=== PATIENT | male | born 1970 | race Caucasian/White ===

== ENCOUNTER 2017-10-09 09:00 | Day surgery (SDC) | payer OTHER ==
[~2017-10-09 09:00] MED LIST: NS 1,000 ML IV
[2017-10-09] MEDS ORDERED: MIDAZOLAM INJ 2 MG/2 ML VIAL (J2250) As Ordered (09:43)
[2017-10-09] MEDS ORDERED: PROPOFOL 200 MG/20 ML VIAL As Ordered (09:46)
[2017-10-09] MEDS ORDERED: LIDOCAINE 2% INJ 100 MG/5 ML SDV (FOR ANES.) As Ordered (09:46)
== END 2017-10-09 10:55 | disposition home or self-care (01) ==
LOC: M OPP 09:00
DX: K57.32 Diverticulitis of large intestine without perforation or abscess without bleeding (principal); D12.0 Benign neoplasm of cecum; D12.5 Benign neoplasm of sigmoid colon; K64.0 First degree hemorrhoids; K57.30 Diverticulosis of large intestine without perforation or abscess without bleeding; M19.90 Unspecified osteoarthritis, unspecified site; M54.9 Dorsalgia, unspecified; R06.83 Snoring; R09.81 Nasal congestion; F17.290 Nicotine dependence, other tobacco product, uncomplicated; Z80.3 Family history of malignant neoplasm of breast
CPT/HCPCS: 45385

== ENCOUNTER → 2019-09-18 | Outpatient (REF) | payer BC, OTHER ==
[~2019-09-18] MED LIST changes: -NS 1,000 ML IV; +PROBCAP4 PO
[2019-09-18 18:29] LABS: APPEARANCE, URINE CLEAR (CLEAR); BACTERIA, URINE AUTO NEGATIVE (NEGATIVE); BILIRUBIN, URINE AUTO NEGATIVE (NEGATIVE); BLOOD, URINE BLOOD NEGATIVE (NEGATIVE); COLOR, URINE YELLOW (YELLOW); GLUCOSE, URINE (UA) AUTO 3+ mg/dL (NEGATIVE); KETONE, URINE AUTO TRACE mg/dL (NEGATIVE); LEUKOCYTE ESTERASE, URINE AUTO NEGATIVE (NEGATIVE); MUCUS, URINE SMALL (NEGATIVE); NITRITE, URINE AUTO NEGATIVE (NEGATIVE); PROTEIN, URINE AUTO NEGATIVE (NEGATIVE); RBC, URINE AUTO 0 /HPF (0-3); SPECIFIC GRAVITY URINE AUTO 1.024 (1.002-1.035); SQUAMOUS EPITHELIAL CELL UR AU 0 /HPF (0-6); UROBILINOGEN, URINE AUTO 0.2 mg/dL (0.0-2.0); WBC, URINE AUTO 2 /HPF (0-3)
== END ==
LOC: M SMT 17:35
PROVIDERS: ATTEND Nurse Practitioner Family
DX: R31.0 Gross hematuria (principal)

== ENCOUNTER → 2019-09-25 | Outpatient (CLI) | payer BC, OTHER ==
[~2019-09-25] MED LIST changes: +ISOVUE-370 76% 100ML VIAL (Q9967) As Ordered ONE
--- NOTE | 2019-09-25 16:35 | REP ---
Clinical: Gross hematuria. Technique: Axial precontrast, contrast enhanced, and delayed images of the abdomen and pelvis using 100 ml Isovue 370 intravenous contrast material with coronal and sagittal re-formations. Comparison: None. Findings: Evaluation of the urinary tract system demonstrates 2 mm nonobstructing left renal calculus. The kidneys, bilateral ureters, and bladder are otherwise normal. Hepatomegaly and fatty infiltration to the liver. Spleen, pancreas, and bilateral adrenal glands are normal. Evidence of prior cholecystectomy. The enteric system is without obstruction or acute inflammatory process. Normal appendix identified in the right lower quadrant. Scattered colonic diverticula noted without acute diverticulitis. Pelvis demonstrates normal bladder and age-appropriate prostate/seminal vesicles. No ascites. No free air. No adenopathy. Abdominal aorta without aneurysm. Musculoskeletal structures are intact. Lung bases are clear. Impression: 1. 2 mm nonobstructing left renal calculus. 2. Hepatomegaly and hepatic steatosis. 3. Scattered colonic diverticula without acute diverticulitis Electronically Signed by Ramin Pennington MD 09/25/2019 04:25 P
== END ==
LOC: M RAD 15:16
PROVIDERS: ATTEND Nurse Practitioner Family
DX: R31.0 Gross hematuria (principal); N20.0 Calculus of kidney; K57.90 Diverticulosis of intestine, part unspecified, without perforation or abscess without bleeding
CPT/HCPCS: 74178; Q9967

== ENCOUNTER → 2019-10-23 | Outpatient (REF) | payer BC, OTHER ==
[~2019-10-23] MED LIST changes: -ISOVUE-370 76% 100ML VIAL (Q9967) As Ordered ONE
[2019-10-23 17:56] LABS: APPEARANCE, URINE CLEAR (CLEAR); BACTERIA, URINE AUTO NEGATIVE (NEGATIVE); BILIRUBIN, URINE AUTO NEGATIVE (NEGATIVE); BLOOD, URINE BLOOD NEGATIVE (NEGATIVE); CALCIUM OXALATE CRYSTALS SMALL; COLOR, URINE YELLOW (YELLOW); GLUCOSE, URINE (UA) AUTO 1+ mg/dL (NEGATIVE); KETONE, URINE AUTO NEGATIVE (NEGATIVE); LEUKOCYTE ESTERASE, URINE AUTO NEGATIVE (NEGATIVE); MUCUS, URINE SMALL (NEGATIVE); NITRITE, URINE AUTO NEGATIVE (NEGATIVE); PROTEIN, URINE AUTO NEGATIVE (NEGATIVE); RBC, URINE AUTO 0 /HPF (0-3); SQUAMOUS EPITHELIAL CELL UR AU 0 /HPF (0-6); UROBILINOGEN, URINE AUTO 0.2 mg/dL (0.0-2.0); WBC, URINE AUTO 1 /HPF (0-3)
== END ==
LOC: M SMT 17:05
PROVIDERS: ATTEND Urology
DX: R31.0 Gross hematuria (principal)

== ENCOUNTER 2020-11-30 15:13 | Emergency (ER) | payer OTHER, BC ==
[~2020-11-30] VITALS: Ht 182.9 cm; Wt 166.8 kg
[2020-11-30] MEDS ORDERED: AMLO1TAB24 (15:30)
[2020-11-30] MEDS ORDERED: METF500T13 (15:30)
[2020-11-30] MEDS ORDERED: CYCL-707 (15:30)
[2020-11-30] MEDS ORDERED: ATOR1TAB19 (15:30)
[2020-11-30] MEDS ORDERED: LISI20TA33 (15:30)
--- NOTE | 2020-11-30 16:21 | REP ---
INDICATION: bilat heel, 1st MTP pain, swelling, nki COMPARISON: None. TECHNIQUE: AP, lateral, bilateral oblique views right and left foot. FINDINGS: Right foot demonstrates diffuse soft tissue swelling. Osseous structures appear intact and without acute fracture or dislocation. Joint spaces are age-appropriate and without overt degenerative changes. Left foot demonstrates diffuse soft tissue swelling. Osseous structures appear intact and without acute fracture or dislocation. Joint spaces are age-appropriate and without overt degenerative changes. IMPRESSION: Bilateral soft tissue swelling. No acute fracture or dislocation. <Electronically signed by Ramin Pennington > 11/30/20 [id number]
[2020-11-30 16:31] LABS: BASO % 0.3 % (0.0-1.0); EOS # 0.2 10^3/uL (0.0-0.5); EOS % 1.2 % (0.0-3.0); HEMATOCRIT 45.4 % (42.0-52.0); LYMPH # 2.3 10^3/uL (1.5-5.0); LYMPH % 17.6 % (24.0-44.0); MEAN CORPUSCULAR HEMOGLOBIN 29.8 pg (27.0-33.0); MEAN CORPUSCULAR VOLUME 90.3 fl (80.0-96.0); MONO % 7.6 % (2.0-8.0); NEUTROPHILS # 9.5 10^3/uL (1.5-8.5); NEUTROPHILS % 72.8 % (36.0-66.0); PLATELET COUNT, AUTOMATED 311 10^3/uL (150-450); RED BLOOD COUNT 5.03 10^6/uL (4.30-6.10)
[2020-11-30 16:41] LABS: INR 1.01; PROTHROMBIN TIME 13.5 SECONDS (12.5-14.3)
[2020-11-30 16:42] LABS: PARTIAL THROMBOPLASTIN TIME 34.1 SECONDS (24.2-38.5)
[2020-11-30 17:02] LABS: ALBUMIN 4.4 GM/DL (3.2-5.2); ALT/SGPT 34 U/L (12-78); BILIRUBIN,DIRECT 0.1 MG/DL (0.0-0.2); BILIRUBIN,TOTAL 0.6 MG/DL (0.2-1.0); BLOOD UREA NITROGEN 11 MG/DL (7-18); CALCIUM LEVEL 9.4 MG/DL (8.5-10.1); CARBON DIOXIDE LEVEL 30 MEQ/L (21-32); CHLORIDE LEVEL 102 MEQ/L (98-107); CK-MB VALUE MASS < 1.0 NG/ML (<3.6); CPK CREATINE PHOSPHOKINASE 41 U/L (39-308); CREATININE FOR GFR 1.01 MG/DL (0.70-1.30); GLOMERULAR FILTRATION RATE > 60.0 (>56); GLUCOSE, FASTING 105 MG/DL (70-100); MAGNESIUM LEVEL 2.1 MG/DL (1.8-2.4); MB/CK RELATIVE INDEX 2.44 (< OR =4); NT-PRO BNP 9 PG/ML (<125); POTASSIUM SERUM 4.1 MEQ/L (3.5-5.1); SODIUM LEVEL 138 MEQ/L (136-145); TOTAL PROTEIN 7.5 GM/DL (6.4-8.2); TROPONIN I < 0.02 NG/ML (< 0.10)
[2020-11-30 17:56] LABS: ERYTHROCYTE SEDIMENTATION RATE 36 mm/hr (0-20)
[2020-11-30] MEDS ORDERED: KETOROLAC 60MG 2ML VIAL IM ONE (18:15)
--- NOTE | 2020-11-30 18:37 | REPVR ---
PROCEDURE INFORMATION: Exam: US Duplex Lower Extremity Veins, Bilateral Exam date and time: 11/30/2020 5:59 PM Age: 50 years old Clinical indication: Pain; Leg, lower and foot; Bilateral; Additional info: Calf pain, swelling shannon lower legs, bed bound 1 week TECHNIQUE: Imaging protocol: Real-time duplex ultrasound of the extremities with 2-D igron scale, color Doppler flow and spectral waveform analysis with image documentation. Complete exam focused on the bilateral lower extremity veins. COMPARISON: No relevant prior studies available. FINDINGS: Right deep veins: Unremarkable. The common femoral, femoral and popliteal veins are patent without thrombus. Normal Doppler waveforms. Normal compressibility and/or augmentation response. Right superficial veins: Saphenofemoral junction is patent without thrombus. Left deep veins: Unremarkable. The common femoral, femoral and popliteal veins are patent without thrombus. Normal Doppler waveforms. Normal compressibility and/or augmentation response. Left superficial veins: Saphenofemoral junction is patent without thrombus. Soft tissues: Unremarkable. IMPRESSION: No evidence of deep vein thrombosis in the lower extremity vessels bilaterally. Electronically signed by: Lucas Lord On 11/30/2020 18:38:01 PM
[2020-11-30] MEDS ORDERED: KETO10TAB PO (18:44)
[2020-11-30] MEDS ORDERED: ROLLMIS8 XX (18:51)
[2020-11-30 19:01] VITALS: BP 137/83
== END 2020-11-30 19:02 | disposition home or self-care (01) ==
LOC: M ED 15:13
DX: M79.673 Pain in unspecified foot (principal); R22.43 Localized swelling, mass and lump, lower limb, bilateral; M65.879 Other synovitis and tenosynovitis, unspecified ankle and foot; E11.9 Type 2 diabetes mellitus without complications; I10 Essential (primary) hypertension; G47.33 Obstructive sleep apnea (adult) (pediatric); E78.5 Hyperlipidemia, unspecified; M10.9 Gout, unspecified
CPT/HCPCS: 36415; 73630; 80048; 80076; 82550; 82553; 83735; 83880; 84484; 85025; 85610; 85652; 85730; 86140; 93970; 96372; 99284; J1885

== ENCOUNTER 2021-06-17 17:01 | Emergency (ER) | payer BC, OTHER ==
[~2021-06-17] VITALS: Ht 182.9 cm; Wt 165.4 kg
[~2021-06-17 17:01] MED LIST changes: +AMLO1TAB24; +ATOR1TAB19; +CYCL-707; +KETO10TAB PO; +LISI20TA33 PO; +METF500T13 PO; +ROLLMIS8 XX
[2021-06-17] MEDS ORDERED: NAPROXEN 250 MG TAB PO ONE (18:30)
[2021-06-17] MEDS ORDERED: TIZA2CAP PO (18:33)
[2021-06-17] MEDS ORDERED: NAPR-837 PO (18:33)
[2021-06-17 19:05] VITALS: BP 116/62
== END 2021-06-17 19:09 | disposition home or self-care (01) ==
LOC: M ED 17:01
DX: S29.012A Strain of muscle and tendon of back wall of thorax, initial encounter (principal); X58.XXXA Exposure to other specified factors, initial encounter; Y92.89 Other specified places as the place of occurrence of the external cause; Y93.89 Activity, other specified; Y99.8 Other external cause status; M62.830 Muscle spasm of back; M10.9 Gout, unspecified; G47.33 Obstructive sleep apnea (adult) (pediatric); I10 Essential (primary) hypertension; E11.9 Type 2 diabetes mellitus without complications; Z79.84 Long term (current) use of oral hypoglycemic drugs; Z79.899 Other long term (current) drug therapy

== ENCOUNTER 2022-09-28 11:45 | Emergency (ER) | payer BC, OTHER ==
[~2022-09-28] VITALS: Ht 182.9 cm; Wt 179.2 kg
[~2022-09-28 11:45] MED LIST changes: +NAPR-837 PO; +TIZA2CAP PO
[2022-09-28 11:46] VITALS: BP 171/101
== END 2022-09-28 13:27 | disposition left against medical advice (07) ==
LOC: M ED 11:45
DX: Z53.21 Procedure and treatment not carried out due to patient leaving prior to being seen by health care provider (principal)

== ENCOUNTER 2023-01-30 09:52 | Day surgery (SDC) | payer OTHER ==
[~2023-01-30] VITALS: Ht 182.9 cm; Wt 159.7 kg
[~2023-01-30 09:52] MED LIST changes: +CO Q1CAP2 PO; +JANU100T PO; +METF850T4 PO; +NS 1,000 ML IV ONE
[2023-01-30] MEDS ORDERED: propofoL 200 MG/20 ML VIAL As Ordered ONE ×2 (11:04→11:09)
[2023-01-30 12:00] VITALS: BP 131/75
== END 2023-01-30 12:02 | disposition home or self-care (01) ==
LOC: M OPP 09:52
PROVIDERS: ATTEND Internal Medicine Gastroenterology
DX: Z12.11 Encounter for screening for malignant neoplasm of colon (principal); Z86.010 Personal history of colon polyps; K63.5 Polyp of colon; K64.0 First degree hemorrhoids; K57.30 Diverticulosis of large intestine without perforation or abscess without bleeding; G47.33 Obstructive sleep apnea (adult) (pediatric); Z99.89 Dependence on other enabling machines and devices; Z79.02 Long term (current) use of antithrombotics/antiplatelets; Z79.84 Long term (current) use of oral hypoglycemic drugs; Z79.899 Other long term (current) drug therapy